=== PATIENT | female | born 1945 | race Caucasian/White ===

== ENCOUNTER → 2017-05-05 | Outpatient (CLI) | payer OTHER ==
[~2017-05-05] MED LIST: LORTAB 5-500 T1 EAC1 PO; OMEPRAZOLE 20 M20 MG PO; PROZAC 10 MG CA10 MG PO; SYNTHROID75 MCG PO
== END ==
LOC: RAD 11:03
DX: Z12.31 Encounter for screening mammogram for malignant neoplasm of breast (principal)

== ENCOUNTER → 2018-06-01 | Outpatient (CLI) | payer OTHER | LOC: RAD 01:05 | DX: Z12.31 Encounter for screening mammogram for malignant neoplasm of breast (principal) ==